=== PATIENT | male | born 1950 | race Caucasian/White ===

== ENCOUNTER 2021-02-28 05:59 | Day surgery (SDC) | payer MEDICARE, BC ==
[2021-02-27 11:09] LABS: BASOPHILS # (AUTO) 0.1 X10'3 (0-0.2); BASOPHILS % (AUTO) 1.2 % (0-1); EOSINOPHILS # (AUTO) 0.1 X10'3 (0-0.9); EOSINOPHILS % (AUTO) 1.5 % (0-6); HEMATOCRIT 44.2 % (42.0-52.0); LYMPHOCYTES # (AUTO) 1.4 X10'3 (1.1-4.8); LYMPHOCYTES % (AUTO) 20.6 % (21-51); MEAN CORPUSCULAR HEMOGLOBIN 31.2 PG (27.0-31.0); MEAN CORPUSCULAR VOLUME 91.7 FL (78-98); MEAN PLATELET VOLUME 9.3 FL (7.4-10.4); MONOCYTES # (AUTO) 0.6 X10'3 (0-0.9); MONOCYTES % (AUTO) 8.2 % (2-12); NEUTROPHILS # (AUTO) 4.8 X10'3 (1.8-7.7); NEUTROPHILS % (AUTO) 68.5 % (42-75); PLATELET COUNT 200 X10'3 (140-440); RED BLOOD COUNT 4.82 X10'6 (4.70-6.10); RED CELL DISTRIBUTION WIDTH 13.3 % (11.5-14.5)
[2021-02-27 11:20] LABS: PARTIAL THROMBOPLASTIN TIME 27 SECONDS (22-32)
[2021-02-27 11:21] LABS: ALANINE AMINOTRANSFERASE 57 U/L (12-78); ALBUMIN/GLOBULIN RATIO 1.1 (1.1-1.5); ALKALINE PHOSPHATASE 63 IU/L (46-116); ANION GAP 12 (8-16); ASPARTATE AMINO TRANSFERASE 21 U/L (10-37); BILIRUBIN,TOTAL 0.3 MG/DL (0.1-1.0); BLOOD UREA NITROGEN 14 MG/DL (7-18); CALCIUM 9.2 MG/DL (8.5-10.1); CHLORIDE 103 MMOL/L (99-107); CREATININE 1.08 MG/DL (0.60-1.10); GLUCOSE 207 MG/DL (70-104); POTASSIUM 4.7 MMOL/L (3.5-5.1); SODIUM 140 MMOL/L (135-145); TOTAL CARBON DIOXIDE 25.3 MMOL/L (24-32); TOTAL PROTEIN 7.7 G/DL (6.4-8.2); eGFR 68 ML/MIN
[~2021-02-28] VITALS: Ht 180.3 cm; Wt 109.1 kg
[2021-02-28] VITALS (14 sets, daily range): BP systolic 117–152; BP diastolic 59–95
[2021-02-28] MEDS ORDERED: insulin Lispro (HumaLOG) vial - multi-dose SQ SCH (06:15)
[2021-02-28] MEDS ORDERED: dextrose 50%-water 50ml dispensing syringe IV PRN ×2 (06:15)
[2021-02-28] MEDS ORDERED: dextrose ORAL solution 15 GM/59 ML bottle PO PRN ×2 (06:15)
[2021-02-28] MEDS ORDERED: normal saline 1,000 ML IV SCH (06:15)
[2021-02-28] MEDS ORDERED: LORazepam 0.5 MG tablet PO PRN (06:15)
[2021-02-28] MEDS ORDERED: MESSAGE TO PHARMACY PO ONE (06:15)
[2021-02-28] MEDS ORDERED: nitroGLYCERIN 0.4mg SUBLingual tab SL PRN (06:15)
[2021-02-28] MEDS ORDERED: glucagon, human recombinant 1mg kit SUBCUT PRN (06:15)
[2021-02-28] MEDS ORDERED: diphenhydrAMINE 25mg capsule PO PRN (06:15)
[2021-02-28] MEDS ORDERED: ERGO400C (07:00)
[2021-02-28] MEDS ORDERED: FLUT16SP2 BOTHNARES (07:00)
[2021-02-28] MEDS ORDERED: OMEG-79 PO (07:00)
[2021-02-28] MEDS ORDERED: ASPI-1265 PO (07:00)
[2021-02-28] MEDS ORDERED: SITA1TBM7 PO (07:00)
[2021-02-28] MEDS ORDERED: glucosamine PO (07:00)
[2021-02-28] MEDS ORDERED: midazolam 1 mg/ML 2ml injection ONE ×2 (07:24→08:56)
[2021-02-28] MEDS ORDERED: LIDOcaine 1% (10mg/ml)w/preservative injection 20ml MDV ONE (07:24)
[2021-02-28] MEDS ORDERED: iohexol 350 MG/ML 50ML vial IV ONE (07:24)
[2021-02-28] MEDS ORDERED: fentaNYL/PF 50MCG/1 ML 2ML syringe ONE (07:24)
[2021-02-28] MEDS ORDERED: iohexol 350MG/ML 100ml bottle IV ONE (07:24)
[2021-02-28] MEDS ORDERED: proCHLORperazine 10 MG/2 ml inj ONE (08:56)
[2021-02-28 09:33] LABS: HEMOGLOBIN A1C 6.8 % (4.5-6.2)
[2021-02-28] MEDS ORDERED: HYDROcodone/acetaminophen 5mg/325mg tablet PO PRN (09:45)
[2021-02-28] MEDS ORDERED: OXAZEpam 15mg capsule PO PRN (09:45)
[2021-02-28] MEDS ORDERED: HYDROcodone/acetaminophen 10/325mg tab PO PRN (09:45)
[2021-02-28] MEDS ORDERED: proCHLORperazine 10 MG/2 ml inj IV PRN (09:45)
[2021-02-28] MEDS ORDERED: normal saline 1000ml 1,000 ML IV SCH (09:45)
[2021-02-28] MEDS ORDERED: ondansetron/PF 4mg/2ml inj IV PRN (09:45)
[2021-02-28] MEDS ORDERED: insulin glargine (Lantus) pen - multi-dose SQ SCH (21:00)
== END 2021-02-28 16:00 | disposition home or self-care (01) ==
LOC: SSTAY O 05:59
PROVIDERS: ATTEND Internal Medicine Cardiovascular Disease
DX: R94.39 Abnormal result of other cardiovascular function study (principal); I25.10 Atherosclerotic heart disease of native coronary artery without angina pectoris; E11.9 Type 2 diabetes mellitus without complications; I47.1 Supraventricular tachycardia; J44.9 Chronic obstructive pulmonary disease, unspecified; E78.5 Hyperlipidemia, unspecified; Z79.01 Long term (current) use of anticoagulants; Z79.899 Other long term (current) drug therapy; Z98.890 Other specified postprocedural states
CPT/HCPCS: 36415; 71046; 80053; 82948; 83036; 83880; 85025; 85610; 85730; 93005; 93458; 99152; C1760; C1769; J0780; J1644; J1815; J2001; J2250; J3010; J7030; Q0163; Q9967; 99153; A4620; A6258